=== PATIENT | male | born 2000 | race Caucasian/White ===

== ENCOUNTER → 2024-08-28 | Outpatient (CLI) | payer BC ==
--- NOTE | 2024-08-28 08:32 | US ---
EXAMINATION TYPE: US liver DATE OF EXAM: 08/28/2024 COMPARISON: NONE CLINICAL INDICATION: Male, 24 years old with history of R74.8 ABN LEVELS OF SERUM ENZYMES; Patient de nies any signs, symptoms, or relevant history TECHNIQUE: Grayscale and color Doppler imaging of the right upper quadrant was performed. 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 No evidence for acute abdominal process. 2. Hepatic steatosis. Focal fatty sparing around the gallbladder fossa. [facility], , 08/28/2024 8:29 AM
== END | disposition home or self-care (01) ==
LOC: RADUSWWP 07:44
PROVIDERS: ATTEND Family Medicine
DX: K76.0 Fatty (change of) liver, not elsewhere classified (principal); R74.8 Abnormal levels of other serum enzymes
CPT/HCPCS: 76705